=== PATIENT | female | born 1975 | race Caucasian/White ===

== ENCOUNTER 2025-07-03 12:19 | Emergency (ER) | payer OTHER, SELFPAY ==
[2025-07-03 12:21] VITALS: BP 212/123
[2025-07-03 12:23] VITALS: BP 183/113; BMI 35.5
--- NOTE | 2025-07-03 13:40 | ED.GENMED ---
History of Present Illness
General
Chief Complaint: Blood Pressure Problem
Source: patient
Exam Limitations: none
Time Seen by Provider: 07/03/25 13:39
History of Present Illness
History of Present Illness:
49-year-old female went to her physician yesterday for a routine visit. Blood pressure was noted to be mildly elevated with a diastolic blood pressure of 100. Was told to monitor her blood pressure. Today her diastolic pressure was 110. Because
of this her physician sent her to the ER for further care. She denies acute endorgan symptoms denying chest pain shortness of breath visual issues stroke issues. She has a mild headache at times but the headache is not unremarkable headache or
significant headache.
Past History
Past History
ED Past Medical History: Hypothyroidism
ED Past Surgical History: Gynecological and Orthopedic
Review of Systems
Review of Systems
All Other Systems: Not applicable
Respiratory: Reports no symptoms
Cardiac: Reports no symptoms
ABD/GI: Reports no symptoms
Phy Exam
Physical Exam
Physical Exam:
GENERAL: Alert and oriented in no apparent distress
EYE: Orbits normal. Discs sharp
NECK: Supple, no thyroid palpable
ENT: Pharynx without erythema
CARDIAC: Regular rate and rhythm without any obvious murmurs.
LUNGS: Clear breath sounds,normal
ABDOMEN: Soft, without focal tenderness or distention
NEUROLOGICAL: Alert and oriented , grossly non-focal. Speech normal. Strength normal.
SKIN: Warm and dry, no rash or lesion, no discoloration, skin intact.
MUSCULOSKELETAL: No edema,no deformity.Good color
PSYCH: Normal and appropriate interaction.
Course
Orders/Labs/Results
Orders:
Orders
07/03/25 12:23
EKG [Electrocardiogram (*1)] Urgent
Reason for Study: Hypertension, Benign
EKG- Treatment ONCE
07/03/25 13:36
Complete Blood Count/With Diff Urgent
Comprehensive Metabolic Panel Urgent
Free T4 Urgent
TSH Reflex To Free T4 Urgent
Comment: ADD ON
07/03/25 13:47
Add On- LAB Urgent
Tests Added?: TSH reflex to T4
07/03/25 16:23
Urinalysis Reflex To Culture Urgent
Date Specimen was Collected: 07/03/25
Time Specimen was Collected: 15:28
Urine Microscopic Reflex Cult Urgent
Urine Culture Urgent
ADRIANE Source: U
Specimen Description:
Date Specimen was Collected: 07/03/25
Time Specimen was Collected: 15:28
07/03/25 16:32
Amlodipine [Norvasc] 2.5 mg PO NOW STA
Abnormal Lab Results
07/03/25 07/03/25
13:36 16:23
MPV 10.6 H fL
(7.4-10.4)
Glucose 107 H mg/dl
(70-99)
TSH (Reflex) 0.33 L uIU/ml
(0.47-4.68)
Leukocyte Esterase Rfl 1+ A
(Negative)
Urine Bacteria (Reflex) Few A
(Negative)
07/03/25 13:36
07/03/25 13:36
Vital Signs
Initial and Last Documented VS:
Initial Vital Signs
Temp Pulse Resp BP Pulse Ox
98.8 F 81 17 212/123 99
07/03/25 12:21 07/03/25 12:21 07/03/25 12:21 07/03/25 12:21 07/03/25 12:21
Last Documented Vital Signs
Temp Pulse Resp BP Pulse Ox
98.8 F 78 17 152/103 97
07/03/25 12:21 07/03/25 16:52 07/03/25 12:21 07/03/25 16:52 07/03/25 16:30
MDM/Problems Addressed
Differential Diagnosis Includes:
Mild hypertension. No endorgan symptoms. Will check renal function and urine for protein monitor. Would consider starting mild blood pressure management if blood pressure remains elevated.
*Pulse Oximetry
SaO2: 99
Oxygen Mode of Delivery: Room air
Patient hypoxic: no
*EKG
Interpreted by ED Provider?: Yes
Interpretation: abnormal
Comparison EKG: no comparison EKG present
Heart Rate: 84
Rate: normal
Rhythm: sinus
[place]: normal axis
Interval: normal interval
QRS Pattern: normal QRS
Ischemia: non-specific ST changes
*Critical Care Note
Total Time (30-74mins, 75-104mins- exclusive of procedures): Not Applicable
Update Note
Update Note:
I tried to contact patient's primary physician was unavailable. Blood pressures remain mildly elevated here. Were elevated yesterday. I suspect she does have a component of hypertension. Will start low-dose amlodipine to follow-up.
ED Attending Note
-
Portions of this chart may have been created with voice recognition software.� Occasional wrong word or��sound alike� substitutions may have occurred due to the inherent limitations of voice recognition software.
Discharge Plan
Departure
Patient Disposition: Home (Routine Discharge)
Date of Disposition: 07/03/25
Time of Disposition: 17:23
Patient with high blood pressure during this ER visit?: Yes
Discharge Problem:
Hypertension evaluation
Instructions: High Blood Pressure (DC), BLOOD PRESSURE
Prescriptions:
New
amlodipine 2.5 mg tablet
2.5 mg PO DAILY Qty: 30 0RF
Referrals:
Rosalina German DO [Family Provider, Family Practice] - Follow up in 2-3 days
Interventions
Interventions:
*Risk Screen - Suicide Last Done: 07/03/25 12:23
*General Assessment Last Done: 07/03/25 12:23
*Neglect/Abuse Screening Last Done: 07/03/25 12:23
*ED COVID-19 Vaccine History Last Done: 07/03/25 12:23
*ED Influenza Vaccine History Last Done: 07/03/25 12:23
Discharge Date and Time
Print Language: YORUBA
[2025-07-03 13:50] LABS: Hematocrit 40.6 % (37.0-47.0); Hemoglobin 13.7 g/dL (12.0-16.0); Mean Corp Hgb Conc. 33.7 g/dL (33.0-37.0); Mean Corpuscular Volume 86.4 fL (81.0-99.0); Nucleated Red Blood Cells % 0 %; Platelet Count 235 10^3/uL (130-400); Red Cell Dist. Width 11.5 % (11.5-14.5)
[2025-07-03 14:11] LABS: ALT (SGPT) 23 U/L (0-35); AST (SGOT) 21 U/L (14-36); Albumin 4.6 g/dl (3.5-5.0); Alkaline Phosphatase 82 U/L (38-126); Blood Urea Nitrogen 17 mg/dl (7-17); Calcium 9.9 mg/dl (8.4-10.2); Carbon Dioxide 28 mmol/L (22-30); Chloride 106 mmol/L (98-107); Estimated Creatinine Clearance 102 ml/min; Glucose 107 mg/dl (70-99); Potassium 4.1 mmol/L (3.5-5.1); Sodium 141 mmol/L (135-145); Total Protein 7.3 g/dl (6.3-8.2); eGFR > 60.00
[2025-07-03 15:00] VITALS: BP 147/95
[2025-07-03 16:30] LABS: Urine Character Clear (Clear)
[2025-07-03 16:44] LABS: Urine Red Blood Cell 0-2 /HPF (0-2); Urine Squamous Cell 0-2 /LPF (Few); Urine White Cell 0-2 /HPF (0-5)
[2025-07-03] MEDS: NORVASC 2.5 MG PO (16:52)
== END 2025-07-03 17:31 | disposition home or self-care (01) ==
LOC: EMR 12:19
PROVIDERS: Student in an Organized Health Care Education/Training Program; EMERGENCY PHYSICIAN Emergency Medicine; FAMILY PHYSICIAN Family Medicine
DX: I10 Essential (primary) hypertension (principal); E03.9 Hypothyroidism, unspecified
CPT/HCPCS: 99283; 80053; 81003; 81015; 84439; 84443; 85025; 87086; 93005